=== PATIENT | female | born 1995 | race Caucasian/White ===

== ENCOUNTER → 2016-07-01 | Outpatient (CLI) | payer OTHER | LOC: US 12:30 | DX: R92.8 Other abnormal and inconclusive findings on diagnostic imaging of breast (principal) | CPT/HCPCS: 76641-LT ==

== ENCOUNTER 2021-01-05 07:18 | Inpatient (IN) | payer OTHER ==
[2021-01-05 09:19] LABS: HEMOGLOBIN 12.1 gm/dl (12.3-15.3); RED BLOOD COUNT 4.37 M/UL (4.00-5.10); WHITE BLOOD COUNT 12.8 K/UL (4.5-11.0)
[2021-01-06 03:35] LABS: HEMOGLOBIN 9.4 gm/dl (12.3-15.3)
[2021-01-06 10:11] LABS: HEP B CORE AB, IGM Negative (Negative); HIV SCREEN 4TH GENERATION WRFX Non Reactive (Non Reactive)
[2021-01-06 13:11] LABS: TREPONEMA PALLIDUM ANTIBODIES Non Reactive (Non Reactive)
[2021-01-07] MEDS ORDERED: PERCOCET 5/325 T1 EA PO ×2 (07:43→08:26)
[2021-01-07] MEDS ORDERED: HEMOCYTE324 MG PO ×2 (07:43→08:26)
[2021-01-07] MEDS ORDERED: COLACE100 MG PO ×2 (07:43→08:26)
== END 2021-01-07 16:15 | disposition home or self-care (01) | DRG 787 ==
LOC: GENOP 07:18 → OB 08:00
PROVIDERS: ADMIT Obstetrics & Gynecology
PROC: 4A1HXCZ Monitoring of Products of Conception, Cardiac Rate, External Approach (ICD-10-PCS; 2021-01-05)
PROC: 3E0234Z Introduction of Serum, Toxoid and Vaccine into Muscle, Percutaneous Approach (ICD-10-PCS; 2021-01-05)
PROC: 10D00Z1 Extraction of Products of Conception, Low, Open Approach (ICD-10-PCS; principal; 2021-01-05 11:33)
DX: O34.211 Maternal care for low transverse scar from previous cesarean delivery (principal); O99.324 Drug use complicating childbirth; Z3A.38 38 weeks gestation of pregnancy; Z20.822 Contact with and (suspected) exposure to COVID-19; Z37.0 Single live birth; O99.334 Smoking (tobacco) complicating childbirth; F17.210 Nicotine dependence, cigarettes, uncomplicated; F12.10 Cannabis abuse, uncomplicated; Z88.8 Allergy status to other drugs, medicaments and biological substances; Z23 Encounter for immunization
CPT/HCPCS: 36415; 80307; 81001; 85014; 85018; 85025; 86705; 86762; 86780; 86803; 86900; 86901; 87389; 90471; 90715; C9113; J0690; J1200; J1885; J2274; J2370; J2405; J2590; J3010; J7120; U0002